=== PATIENT | female | born 1960 | race Caucasian/White ===

== ENCOUNTER → 2017-06-01 | Outpatient (CLI) | payer OTHER ==
[~2017-06-01] MED LIST: CALC-451 PO; FLUT9.9S NAS; MONT10TA9 PO; VENL75CA PO
== END | disposition home or self-care (01) ==
LOC: CFH 13:42
PROVIDERS: ATTEND Nurse Practitioner Women's Health
DX: N63.10 Unspecified lump in the right breast, unspecified quadrant (principal); N63.20 Unspecified lump in the left breast, unspecified quadrant
CPT/HCPCS: 77066

== ENCOUNTER → 2017-12-27 | Outpatient (CLI) | payer OTHER | END | disposition home or self-care (01) | LOC: CFH 14:10 | PROVIDERS: ATTEND Nurse Practitioner Women's Health | DX: N63.20 Unspecified lump in the left breast, unspecified quadrant (principal) ==

== ENCOUNTER → 2018-02-21 | Outpatient (CLI) | payer OTHER ==
[~2018-02-21] MED LIST changes: +LIDOCAINE 1%, 20ML ONE; +LIDOCAINE 1%-EPI 1:100K, 20ML ONE; +SODIUM BICARBONATE 4.0%, 5ML ONE
== END | disposition home or self-care (01) ==
LOC: CFH 09:39
PROVIDERS: ATTEND Obstetrics & Gynecology Gynecology
DX: N60.12 Diffuse cystic mastopathy of left breast (principal)
CPT/HCPCS: 19083; 88305; J3490

== ENCOUNTER → 2018-03-14 | Outpatient (CLI) | payer OTHER ==
[~2018-03-14] MED LIST changes: -LIDOCAINE 1%, 20ML ONE; -LIDOCAINE 1%-EPI 1:100K, 20ML ONE; -SODIUM BICARBONATE 4.0%, 5ML ONE
== END | disposition home or self-care (01) ==
LOC: CFH 11:04
PROVIDERS: ATTEND Obstetrics & Gynecology Gynecology
DX: D25.0 Submucous leiomyoma of uterus (principal); N83.202 Unspecified ovarian cyst, left side; N95.0 Postmenopausal bleeding
CPT/HCPCS: 76830

== ENCOUNTER → 2019-06-06 | Outpatient (CLI) | payer OTHER ==
[~2019-06-06] MED LIST changes: +MONT10TA11 PO; -MONT10TA9 PO
== END | disposition home or self-care (01) ==
LOC: CFH 12:03
PROVIDERS: ATTEND Obstetrics & Gynecology Gynecology
DX: Z12.31 Encounter for screening mammogram for malignant neoplasm of breast (principal)
CPT/HCPCS: 77063; 77067

== ENCOUNTER → 2019-06-26 | Outpatient (CLI) | payer OTHER | END | disposition home or self-care (01) | LOC: CFH 13:16 | PROVIDERS: ATTEND Obstetrics & Gynecology Gynecology | DX: N63.12 Unspecified lump in the right breast, upper inner quadrant (principal) | CPT/HCPCS: 76642; 77065 ==

== ENCOUNTER → 2019-06-27 | Outpatient (CLI) | payer OTHER | END | disposition home or self-care (01) | LOC: CFH 13:48 | PROVIDERS: ATTEND Obstetrics & Gynecology Gynecology | DX: D25.9 Leiomyoma of uterus, unspecified (principal) | CPT/HCPCS: 76830 ==

== ENCOUNTER → 2020-01-20 | Outpatient (CLI) | payer OTHER ==
[2020-01-20 15:39] LABS: MICROSCOPIC NOT IND
[2020-01-20 15:47] LABS: ALANINE AMINOTRANSFERASE 35 U/L (12-78); ALBUMIN 4.2 g/dL (3.4-5.0); ANION GAP 6 mmol/L (5-15); CALCIUM 9.1 mg/dL (8.5-10.1); CHLORIDE 104 mmol/L (98-107); CREATININE 0.98 mg/dL (0.55-1.02)
[2020-01-20 15:49] LABS: ALKALINE PHOSPHATASE 66 U/L (45-117); BILIRUBIN,TOTAL 0.6 mg/dL (0.2-1.0); TOTAL PROTEIN 7.2 g/dL (6.4-8.2)
[2020-01-20 15:54] LABS: MEAN CORPUSCULAR HEMOGLOBIN 27.6 pg (27.0-34.8); MEAN CORPUSCULAR HGB CONC 32.5 g/dL (32.4-35.8); MEAN CORPUSCULAR VOLUME 85.1 fL (80-100); MEAN PLATELET VOLUME 8.2 fL (7.4-10.4); PLATELET COUNT 263 x10^3/uL (130-400); RED BLOOD COUNT 5.53 x10^6/uL (3.82-5.3); RED CELL DISTRIBUTION WIDTH 25.5 % (9.6-15.2)
[2020-01-20 17:03] LABS: MD YES
[2020-01-20 17:09] LABS: BASOS#(MANUAL) 0.06 x10^3/uL (0-0.1); BASOS% (MANUAL) 1 % (0-1); EOS#(MANUAL) 0.17 x10^3/uL (0.0-0.4); EOS% (MANUAL) 3 % (1-7); LYMPH#(MANUAL) 2.13 x10^3/uL (1-3.4); LYMPHS% (MANUAL) 38 % (22-44); MONOS#(MANUAL) 0.28 x10^3/uL (0.3-2.7); MONOS% (MANUAL) 5 % (2-9); SEG#(MANUAL) 2.97 x10^3/uL (1.8-6.8); SEGS% (MANUAL) 53 % (42-75)
[2020-01-20 17:15] LABS: HYPOCHROMIA 1+; MICROCYTOSIS 1+; OVALOCYTES 1+; SPHEROCYTES 1+; TEAR DROPS 1+
[2020-01-20 17:16] LABS: <PLATELET ESTIMATE> ADEQUATE; <PLT MORPHOLOGY> NORMAL PLT MORPH
== END | disposition home or self-care (01) ==
LOC: STAR 14:06
PROVIDERS: ATTEND Obstetrics & Gynecology Gynecology
DX: Z01.812 Encounter for preprocedural laboratory examination (principal); Z20.828 Contact with and (suspected) exposure to other viral communicable diseases; N93.9 Abnormal uterine and vaginal bleeding, unspecified; D25.9 Leiomyoma of uterus, unspecified; Z88.0 Allergy status to penicillin
CPT/HCPCS: 36415; 80053; 81003; 85025; 87635; 93005

== ENCOUNTER 2020-01-24 10:27 | Day surgery (SDC) | payer OTHER ==
[~2020-01-24] VITALS: Ht 165.1 cm; Wt 80.7 kg
[2020-01-24] MEDS ORDERED: LACTATED RINGERS 1,000 ML IV SCH (10:45)
[2020-01-24] MEDS ORDERED: CHLORHEXIDINE 15 ML UDC MM STA (10:45)
[2020-01-24 10:46] VITALS: BP 131/91
[2020-01-24] MEDS ORDERED: FENTANYL PF 250 MCG/5ML ONE (11:29)
[2020-01-24] MEDS ORDERED: MIDAZOLAM 1 MG/ML, 2ML ONE (11:29)
[2020-01-24] MEDS ORDERED: DEXAMETHASONE 4 MG/ML, 1ML ONE ×2 (12:09)
[2020-01-24] MEDS ORDERED: CEFAZOLIN 1,000 MG ONE ×2 (12:09)
[2020-01-24] MEDS ORDERED: ROCURONIUM 10 MG/ML,10ML ONE (12:09)
[2020-01-24] MEDS ORDERED: ONDANSETRON 2MG/ML, 2ML ONE ×2 (12:09)
[2020-01-24] MEDS ORDERED: PROPOFOL 10 MG/ML, 20ML ONE (12:09)
[2020-01-24] MEDS ORDERED: FENTANYL PF 100 MCG/2ML ONE ×2 (12:21→14:05)
[2020-01-24] MEDS ORDERED: PROMETHAZINE 25 MG/ML, 1ML IVPush PRN (12:30)
[2020-01-24] MEDS ORDERED: FENTANYL PF 100 MCG/2ML IV PRN (12:30)
[2020-01-24] MEDS ORDERED: hydrALAzine 20 MG/ML, 1ML IV PRN (12:30)
[2020-01-24] MEDS ORDERED: MEPERIDINE/PF 25MG/0.5ML IVPush PRN (12:30)
[2020-01-24] MEDS ORDERED: OXYcodone 5 MG/5 ML ORAL.SOL UDC PO PRN (12:30)
[2020-01-24] MEDS ORDERED: ONDANSETRON 2MG/ML, 2ML IVPush PRN (12:30)
[2020-01-24] MEDS ORDERED: DIAZEPAM 5 MG/ML, 2ML IVPush PRN (12:30)
[2020-01-24] MEDS ORDERED: EPHEDRINE 50 MG/ML, 1ML IVPush PRN (12:30)
[2020-01-24] MEDS ORDERED: DIPHENHYDRAMINE 50 MG/ML, 1ML IVPush PRN (12:30)
[2020-01-24] MEDS ORDERED: HYDROmorphone 1 MG/ML, 1ML INJ IVPush PRN (12:30)
[2020-01-24] MEDS ORDERED: PROMETHAZINE 12.5 MG SUPP PR PRN (12:30)
[2020-01-24] MEDS ORDERED: ALBUTEROL SULFATE 2.5 MG/3 ML NPPB PRN (12:30)
[2020-01-24] MEDS ORDERED: MIDAZOLAM 1 MG/ML, 2ML IV PRN (12:30)
[2020-01-24] MEDS ORDERED: ACETAMINOPHEN 325 MG TABLET PO PRN (12:30)
[2020-01-24] MEDS ORDERED: LABETALOL 5MG/ML, 20ML IV PRN (12:30)
[2020-01-24] MEDS ORDERED: FLUORESCEIN SODIUM 500 MG/5 ML ONE (13:12)
[2020-01-24] MEDS ORDERED: SUGAMMADEX 200 MG/2 ML IVPush ONE (13:19)
[2020-01-24] MEDS ORDERED: ACETAMINOPHEN 650 MG/20.3 ML UDC ONE (14:05)
[2020-01-24] MEDS ORDERED: OXYcodone 5 MG/5 ML ORAL.SOL UDC ONE (14:05)
== END 2020-01-24 18:00 | disposition home or self-care (01) ==
LOC: OUT 10:27
PROVIDERS: ATTEND Obstetrics & Gynecology Gynecology
DX: N95.0 Postmenopausal bleeding (principal); D25.9 Leiomyoma of uterus, unspecified; M81.0 Age-related osteoporosis without current pathological fracture; I10 Essential (primary) hypertension; E11.9 Type 2 diabetes mellitus without complications; E66.9 Obesity, unspecified; F32.9 Major depressive disorder, single episode, unspecified; K21.9 Gastro-esophageal reflux disease without esophagitis; Z88.0 Allergy status to penicillin; Z79.899 Other long term (current) drug therapy; Z72.89 Other problems related to lifestyle; Z98.890 Other specified postprocedural states; Z68.29 Body mass index [BMI] 29.0-29.9, adult; Z82.49 Family history of ischemic heart disease and other diseases of the circulatory system
CPT/HCPCS: 58571; 88307; J0690; J1100; J2250; J2405; J2704; J3010; J7120